=== PATIENT | male | born 1980 | race African-American/Black ===

== ENCOUNTER 2017-03-18 15:23 | Emergency (ER) | payer OTHER ==
[~2017-03-18] VITALS: Ht 195.6 cm; Wt 154.2 kg
[2017-03-18 16:25] VITALS: BP 154/89
--- NOTE | 2017-03-18 16:25 | NUR ---
Patient discharged to home in stable conditon. Written and verbal after care instructions given. Patient verbalizes understanding of instructions.
== END 2017-03-18 16:34 | disposition home or self-care (01) ==
LOC: ER 15:24
DX: H60.92 Unspecified otitis externa, left ear (principal)
CPT/HCPCS: A4663